=== PATIENT | male | born 1960 | race Caucasian/White ===

== ENCOUNTER 2021-09-15 19:38 | Emergency (ER) | payer BC ==
[~2021-09-15] VITALS: Ht 175.3 cm; Wt 91.0 kg
[2021-09-15] MEDS ORDERED: IBUPROFEN 400MG TABLET PO ONE (20:30)
[2021-09-15] MEDS ORDERED: IBUP-2028 MT (20:33)
[2021-09-15] MEDS ORDERED: AMOX-494 MT (20:33)
[2021-09-15 21:37] VITALS: BP 177/98
== END 2021-09-15 21:40 | disposition home or self-care (01) ==
LOC: ER 19:38
DX: H66.92 Otitis media, unspecified, left ear (principal); R42 Dizziness and giddiness; N40.0 Benign prostatic hyperplasia without lower urinary tract symptoms; E78.00 Pure hypercholesterolemia, unspecified; I10 Essential (primary) hypertension; Z98.890 Other specified postprocedural states
CPT/HCPCS: 93005; 99283; Z7610